=== PATIENT | male | born 1970 | race Caucasian/White ===

== ENCOUNTER 2017-06-08 17:58 | Emergency (ER) | payer OTHER ==
--- NOTE | 2017-06-08 18:56 | ER Document Report ---
ED Medical Screen (RME) - General Chief Complaint: Chest Pain Stated Complaint: CHEST PAIN Time Seen by Provider: 06/08/17 18:46 Notes: This 47-year-old male patient comes emergency room complaining of difficulty swallowing, feeling short of breath and dizziness. All week. He was seen here on 05/31/2017 with esophageal foreign body sensation. At that time radiological studies done here suggested foreign body in the upper esophagus. He was ultimately transferred to [facility] where he had EGD. He states that nothing was found. He does not know if they thought he had a foreign body that had passed prior to endoscopy. He states no one has communicated with him about anything. He continued to have symptoms so he returned to the emergency room this week but no further workup was done and he was told to follow-up primary care. He eventually saw GI with [facility] and had a CT scan done on 06/05/2017. He does not know the results of that scan. At this time he is quite anxious, hyperventilating, states that he is dizzy, that he he has difficulty swallowing. I have greeted and performed a rapid initial assessment of this patient. A comprehensive ED assessment and evaluation of the patient, analysis of test results and completion of the medical decision making process will be conducted by additional ED providers. TRAVEL OUTSIDE OF THE [place] IN LAST 30 DAYS: No - Related Data Allergies/Adverse Reactions: No Known Allergies Allergy (Verified 06/08/17 18:07) Past Medical History - Past Medical History Cardiac Medical History: Reports: Hx Hypercholesterolemia, Hx Hypertension Renal/ Medical History: Denies: Hx Peritoneal Dialysis Musculoskeltal Medical History: Reports Hx Arthritis, Reports Hx Musculoskeletal Deformity, Reports Hx Musculoskeletal Trauma Psychiatric Medical History: Reports: Hx Anxiety Past Surgical History: Reports: Hx Oral Surgery, Hx Testicular Surgery, Other - Laser eye surgery - Immunizations Hx Diphtheria, Pertussis, Tetanus Vaccination: No Physical Exam - Vital signs Vitals: Temp Pulse Resp BP Pulse Ox 97.8 F 88 22 H 117/83 99 06/08/17 18:07 06/08/17 18:07 06/08/17 18:07 06/08/17 18:07 06/08/17 18:07 Course - Vital Signs Vital signs: Temp Pulse Resp BP Pulse Ox 97.8 F 88 22 H 117/83 99 06/08/17 18:07 06/08/17 18:07 06/08/17 18:07 06/08/17 18:07 06/08/17 18:07
[2017-06-08 19:27] LABS: ABSOLUTE BASOPHILS # (AUTO) 0.1 10^3/uL (0.0-0.2); ABSOLUTE EOSINOPHILS # (AUTO) 0.1 10^3/uL (0.0-0.6); ABSOLUTE LYMPHOCYTES (AUTO) 1.3 10^3/uL (0.5-4.7); ABSOLUTE MONOCYTES (AUTO) 0.6 10^3/uL (0.1-1.4); ABSOLUTE NEUT (AUTO) 5.1 10^3/uL (1.7-8.2); BASOPHILS % (AUTO) 1.3 % (0-2); EOSINOPHILS % (AUTO) 1.1 % (0-6); HEMATOCRIT 49.5 % (37.9-51.0); HGB HCT DIFFERENCE 1.5; LYMPHOCYTES % (AUTO) 18.7 % (13-45); MEAN CORPUSCULAR HEMOGLOBIN 30.6 pg (27.0-33.4); MEAN CORPUSCULAR HGB CONC 34.3 g/dL (32.0-36.0); MEAN CORPUSCULAR VOLUME 89 fl (80-97); MONOCYTES % (AUTO) 8.2 % (3-13); RED BLOOD COUNT 5.54 10^6/uL (4.35-5.55); RED CELL DISTRIBUTION WIDTH 13.3 % (11.5-14.0); SEGMENTED NEUTROPHILS % (AUTO) 70.7 % (42-78); WHITE BLOOD COUNT 7.2 10^3/uL (4.0-10.5)
[2017-06-08 19:56] LABS: ALANINE AMINOTRANSFERASE 43 U/L (21-72); ALBUMIN 5.2 g/dL (3.5-5.0); ALKALINE PHOSPHATASE 64 U/L (38-126); ANION GAP 11 (5-19); ASPARTATE AMINO TRANSFERASE 23 U/L (17-59); BILIRUBIN,DIRECT 0.3 mg/dL (0.0-0.4); BILIRUBIN,TOTAL 0.8 mg/dL (0.2-1.3); BLOOD UREA NITROGEN 17 mg/dL (7-20); CALCIUM 10.8 mg/dL (8.4-10.2); CARBON DIOXIDE 28 mmol/L (22-30); CHLORIDE 100 mmol/L (98-107); CREATININE RESULT 0.99 mg/dL (0.52-1.25); GLUCOSE 93 mg/dL (75-110); POTASSIUM 4.6 mmol/L (3.6-5.0); TOTAL PROTEIN 8.5 g/dL (6.3-8.2)
--- NOTE | 2017-06-08 20:01 | EKG REPORT ---
SEVERITY:- BORDERLINE ECG - SINUS RHYTHM BORDERLINE T WAVE ABNORMALITIES : Confirmed by: Hal Rodas MD 08-Jun-2017 20:00:31
--- NOTE | 2017-06-08 20:31 | ER Document Report ---
ED General - General Chief Complaint: Chest Pain Stated Complaint: CHEST PAIN Time Seen by Provider: 06/08/17 18:46 Mode of Arrival: Ambulatory Information source: Patient Notes: Patient states that 1-1/2 weeks ago he was eating food and thought that he might have had a food bolus that got stuck as he had chest pain, shortness of breath and difficulty swallowing. Patient was seen in the emergency department on that night and transferred to [place] for GI consultation. Patient states that he did have an EGD performed but they did not find any food bolus. Patient states that he was discharged home and then followed up with an outpatient GI doctor on 06/05/2017. Patient states that Dr. Short the fire marshal refinery recommended outpatient follow-up. Patient states that he became upset because of his ongoing chest pain with shortness of breath and Dr. Short ordered an outpatient CAT scan. Patient states that he did have a CAT scan performed although he does not know the results of his study which is giving him anxiety symptoms. Patient complains of voice hoarseness for the past several days. Patient states that he has been able to drink shakes, soups , mashed potato and salmon without any difficulty or vomiting. Patient does complain of increased stress related to his recent medical issues. Patient states that he has anxiety about taking medications and does not like to treat his reflux symptoms by taking his described medications. Patient states that he does not want to take any kind of medication to manage his anxiety symptoms. Patient denies nausea or vomiting. Patient states that he is concerned that his anxiety symptoms caused his chest discomfort and got him concerned about his symptoms which prompted him to come in tonight. Patient states that his anxiety is starting to calm down and he is feeling better. TRAVEL OUTSIDE OF THE [place] IN LAST 30 DAYS: No - HPI Onset: Other - 10 days Onset/Duration: Persistent Quality of pain: Other - Tightness Pain Level: 3 Associated symptoms: Chest pain, Hoarseness, Shortness of breath, Sore throat. 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 denies: Arthritis, CAD, COPD, CVA , Hyperlipidemia, Thyroid Disfunction Patient has suicidal ideation: No Patient has homicidal ideation: No - Past Medical History Cardiac Medical History: Reports: Hx Hypercholesterolemia, Hx Hypertension Renal/ Medical History: Denies: Hx Peritoneal Dialysis Musculoskeltal Medical History: Reports Hx Arthritis, Reports Hx Musculoskeletal Deformity, Reports Hx Musculoskeletal Trauma Psychiatric Medical History: Reports: Hx Anxiety Past Surgical History: Reports: Hx Oral Surgery, Hx Testicular Surgery, Other - Laser eye surgery - Immunizations Hx Diphtheria, Pertussis, Tetanus Vaccination: No Review of Systems - Review of Systems Constitutional: No symptoms reported. denies: Fever, Recent illness EENT: Throat pain, Difficulty swallowing, Other - Voice hoarseness Cardiovascular: Chest pain. denies: Syncope, Dizziness Respiratory: Short of breath. denies: Cough Gastrointestinal: No symptoms reported. denies: Abdominal pain, Diarrhea, Nausea, Vomiting Genitourinary: No symptoms reported Male Genitourinary: No symptoms reported Musculoskeletal: No symptoms reported. denies: Back pain Skin: No symptoms reported Hematologic/Lymphatic: No symptoms reported Neurological/Psychological: Anxiety Physical Exam - Vital signs Vitals: Temp Pulse Resp BP Pulse Ox 97.8 F 88 22 H 117/83 99 06/08/17 18:07 06/08/17 18:07 06/08/17 18:07 06/08/17 18:07 06/08/17 18:07 - General General appearance: Appears well, Alert, Anxious In distress: None - HEENT Head: Normocephalic, Atraumatic Eyes: Normal Conjunctiva: Normal Nasal: Normal Mouth/Lips: Normal Mucous membranes: Normal Pharynx: Normal Neck: Normal, Supple. No: Lymphadenopathy - Respiratory Respiratory status: No respiratory distress Chest status: Nontender Breath sounds: Normal. No: Rales, Rhonchi, Stridor, Wheezing Chest palpation: Normal - Cardiovascular Rhythm: Regular Heart sounds: S1 appreciated, S2 appreciated Murmur: No - Abdominal Inspection: Normal Distension: No distension Bowel sounds: Normal Tenderness: Nontender - Back Back: Normal, Nontender. No: CVA tenderness - Extremities General upper extremity: Normal inspection, Normal ROM General lower extremity: Normal inspection, Normal ROM - Neurological Neuro grossly intact: Yes Cognition: Normal Lázaro Coma Scale Eye Opening: Spontaneous Lázaro Coma Scale Verbal: Oriented Farrell Coma Scale Motor: Obeys Commands Lázaro Coma Scale Total: 15 - Psychological Associated symptoms: Anxious - Skin Skin Temperature: Warm Skin Moisture: Dry Skin Color: Normal Course - Re-evaluation Re-evalutation: 06/08/17 22:[address] Mandel regarding patient presentation. Reviewed his diagnostic test results, EKG as well as history. Agrees with discharge plan of care. Discussed with patient at length concerns about his untreated anxiety as well as reflux symptoms. Patient encouraged to follow-up with his GI doctor, primary doctor as well as cardiology for follow-up. The patient has atypical chest pain as the patient's chest pain is not suggestive of pulmonary embolus, cardiac ischemia, aortic dissection, or other serious etiology. Given the extremely low risk of these diagnoses for the test in evaluation for these possibilities does not appear to be indicated at this time. Patient has been instructed to return if the symptoms worsen or change in any way.HEART score 2. 06/09/17 02:43 - Vital Signs Vital signs: Temp Pulse Resp BP Pulse Ox 97.7 F 71 18 114/73 97 06/08/17 22:31 06/08/17 22:31 06/08/17 22:31 06/08/17 22:31 06/08/17 22:31 - Laboratory Result Diagrams: 06/08/17 19:12 06/08/17 19:12 Laboratory results interpreted by me: 06/08/17 19:12 Calcium 10.8 H Total Protein 8.5 H Albumin 5.2 H 06/08/17 22:22 Labs- Entire Visit 06/08/17 06/08/17 06/08/17 19:12 19:12 19:12 WBC 7.2 RBC 5.54 Hgb 17.0 Hct 49.5 MCV 89 MCH 30.6 MCHC 34.3 RDW 13.3 Plt Count 225 Seg Neutrophils % 70.7 Lymphocytes % 18.7 Monocytes % 8.2 Eosinophils % 1.1 Basophils % 1.3 Absolute Neutrophils 5.1 Absolute Lymphocytes 1.3 Absolute Monocytes 0.6 Absolute Eosinophils 0.1 Absolute Basophils 0.1 Sodium 139.0 Potassium 4.6 Chloride 100 Carbon Dioxide 28 Anion Gap 11 BUN 17 Creatinine 0.99 Est GFR ( Amer) > 60 Est GFR (Non-Af Amer) > 60 Glucose 93 Calcium 10.8 H Total Bilirubin 0.8 Direct Bilirubin 0.3 Indirect Bilirubin Not Reportable Neonat Total Bilirubin Not Reportable AST 23 ALT 43 Alkaline Phosphatase 64 Creatine Kinase 66 CK-MB (CK-2) Troponin I Total Protein 8.5 H Albumin 5.2 H 06/08/17 19:12 WBC RBC Hgb Hct MCV MCH MCHC RDW Plt Count Seg Neutrophils % Lymphocytes % Monocytes % Eosinophils % Basophils % Absolute Neutrophils Absolute Lymphocytes Absolute Monocytes Absolute Eosinophils Absolute Basophils Sodium Potassium Chloride Carbon Dioxide Anion Gap BUN Creatinine Est GFR ( Amer) Est GFR (Non-Af Amer) Glucose Calcium Total Bilirubin Direct Bilirubin Indirect Bilirubin Neonat Total Bilirubin AST ALT Alkaline Phosphatase Creatine Kinase CK-MB (CK-2) < 0.22 Troponin I < 0.012 Total Protein Albumin - Diagnostic Test Radiology reviewed: Reports reviewed Discharge - Discharge Clinical Impression: Anxiety about health Chest pain Qualifiers: Chest pain type: unspecified Qualified Code(s): R07.9 - Chest pain, unspecified GERD (gastroesophageal reflux disease) Qualifiers: Esophagitis presence: esophagitis presence not specified Qualified Code(s): K21.9 - Gastro-esophageal reflux disease without esophagitis Condition: Stable Disposition: HOME, SELF-CARE Instructions: Anxiety ([facility]), Chest Pain of Unclear Cause ([facility]), Prilosec (Acid Pump Inhibitor) ([facility]), Reflux Disease (GERD) ([facility]) Additional Instructions: Return immediately for any new or worsening symptoms Followup with your primary care provider, call tomorrow to make a followup appointment Follow-up with your fire marshal refinery for recheck, call tomorrow for an appointment Follow-up with outside residential sales professional for recheck, call tomorrow for an appointment Follow-up with a mental health specialist for consultation regarding your anxiety symptoms Prescriptions: Omeprazole Magnesium [Prilosec Otc] 20 mg PO DAILY #15 tablet.dr Referrals: NAVEED ROPER MD [Primary Care Provider] - Follow up tomorrow ADELFO LUJAN MD [ACTIVE STAFF] - Follow up as needed
[2017-06-08 20:33] LABS: ADD ON TESTING BLD IN LAB ACKNOWLEDGE
[2017-06-08 20:52] LABS: CREATINE KINASE 66 U/L (55-170)
--- NOTE | 2017-06-08 21:10 | RADIOLOGY REPORT (SQ) ---
EXAM DESCRIPTION: CHEST PA/LAT COMPLETED DATE/TIME: 06/08/2017 9:02 pm REASON FOR STUDY: cp, sob COMPARISON: None. TECHNIQUE: Frontal and lateral radiographic views of the chest acquired. NUMBER OF VIEWS: Two view. LIMITATIONS: None. FINDINGS: LUNGS AND PLEURA: No opacities, masses or pneumothorax. No pleural effusion. MEDIASTINUM AND HILAR STRUCTURES: No masses or contour abnormalities. HEART AND VASCULAR STRUCTURES: Heart normal size. No evidence for failure. BONES: No acute findings. HARDWARE: None in the chest. OTHER: No other significant finding. IMPRESSION: NO SIGNIFICANT RADIOGRAPHIC FINDING IN THE CHEST. TECHNICAL DOCUMENTATION: JOB ID: [id number]- All Rights Reserved
[2017-06-08 21:18] LABS: CREATINE KINASE MB < 0.22 ng/mL (<4.55); TROPONIN I < 0.012 ng/mL
[2017-06-08 22:32] VITALS: BP 114/73
== END 2017-06-08 22:31 | disposition home or self-care (01) ==
LOC: ER 17:58
DX: F41.9 Anxiety disorder, unspecified (principal); R07.9 Chest pain, unspecified; K21.9 Gastro-esophageal reflux disease without esophagitis; R06.02 Shortness of breath; E78.00 Pure hypercholesterolemia, unspecified; I10 Essential (primary) hypertension; Z87.891 Personal history of nicotine dependence
CPT/HCPCS: 36415; 71020; 80053; 82550; 82553; 84484; 85025; 93005; 93010; 99285